=== PATIENT | female | born 1995 | race Caucasian/White ===

== ENCOUNTER 2023-10-08 05:59 | Emergency (ER) | payer OTHER, SELFPAY ==
[2023-10-08 06:00] VITALS: BP 140/92; PULSE 100; RESP 20; TEMP 36.3; O2SAT 100
--- NOTE | 2023-10-08 06:10 | ED.GENADULT ---
HPI - General Adult General Chief complaint: Dental/Oral Stated complaint: Tooth Pain(back molar) Time Seen by Provider: 10/08/23 06:05 History of Present Illness HPI narrative: Erin is a 28F with a PMH of poor dentition that presented to the ED with dental pain. She has had pain in her right lower molar for some time but it started to get much worse last night and into this morning. She has a dental appointment coming up but does not think she can make it. There are no fevers, chills, N/V, dyspnea or dysphagia. Related Data Allergies Allergy/AdvReac Type Severity Reaction Status Date / Time No Known Allergies Allergy Verified 10/08/23 06:04 Review of Systems Review of Systems: All systems reviewed & are unremarkable except as noted in HPI and below Exam Const: General: cooperative, healthy appearing, comfortable, no acute distress, well developed, alert, awake and Physically active Orientation/consciousness: oriented to person, oriented to place and oriented to time HENMT: Head: normal to inspection, normocephalic and atraumatic Ears: hearing grossly normal bilaterally and external ears normal Face/Nose/Sinus: Normal external nose present Other: Right lower molar was cracked with an erythematous base and TTP Eyes: General: appearance normal, both eyes and all related structures Periorbital: periorbital findings normal Sclera: sclerae normal Pupils: Equal, round and reactive pupils present Neck: Neck: normal visual inspection Chest: Chest palpation & inspection: normal inspection of the chest Resp: Effort & Inspection: normal respiratory effort, able to speak in complete sentences and no respiratory distress Cardio: Jugular venous distension: no JVD Skin: General skin exam: normal color and no rashes or lesions noted Neuro: General: oriented to person, oriented to place and oriented to time Cranial nerves: Yes Equal, round and reactive pupils present Extrem: General: normal to inspection Course Course Emergency Course: Ordered Toradol and Augmentin Discharge Plan Discharge Clinical Impression: Dental infection Patient Disposition: Home, Self-Care Condition: Stable Instructions: Dental Abscess (ED) Prescriptions: New amoxicillin-pot clavulanate 875-125 mg tablet 1 tablet PO Q12H Qty: 10 0RF hydrocodone-acetaminophen 5-325 mg tablet 1 tablet PO Q8H PRN (Reason: pain) Qty: 10 0RF Follow-up/Referrals: Wujek,Alex A., M.D. [Primary Care Provider] - Stand Alone Forms: Work/School Release IP
[2023-10-08] MEDS: KETOROLAC 30 MG/ML VIAL (*BKC) IM (06:15)
[2023-10-08] MEDS: AMOXICILLIN/CLAVULANATE K 875-125 MG TAB 1 TABLET PO (06:15)
[2023-10-08 06:33] VITALS: BP 138/75; PULSE 89; RESP 20; O2SAT 98
== END 2023-10-08 06:37 | disposition home or self-care (01) ==
LOC: CHSED 06:27
PROVIDERS: Emergency Provider Family Medicine; PCP Family Medicine
DX: K04.7 Periapical abscess without sinus (principal)
CPT/HCPCS: 96372; 99283; A9270; J1885

== ENCOUNTER 2023-12-28 08:13 | Emergency (ER) | payer OTHER, SELFPAY ==
[2023-12-28 08:13] VITALS: BP 127/83; PULSE 97; RESP 16; TEMP 36.9; O2SAT 100
--- NOTE | 2023-12-28 08:18 | ED.DENTAL ---
HPI - Dental/Oral General Chief complaint: Dental/Oral Stated complaint: dental pain Time Seen by Provider: 12/28/23 08:18 History of Present Illness HPI Narrative: Patient is a 28 year old female here with dental pain. She notes that over the weekend she began having left lower dental pain which worsened over night last night. She was taking tylenol which initially helped but has stopped working. She notes that she broke this tooth quite a while ago but it is worried that it may now be infected. This feels similar to her prior dental infections in the past. She notes that she is able to swallow but it is painful to move her jaw so she has been limiting how much she swallows. Last tylenol dose was around 4:30 AM today. She has a routine dental appointment next month. No fevers or chills. Related Data Allergies Allergy/AdvReac Type Severity Reaction Status Date / Time No Known Allergies Allergy Verified 12/28/23 08:21 Review of Systems Review of Systems: All systems reviewed & are unremarkable except as noted in HPI and below Exam Narrative: GENERAL: Well-appearing, well-nourished, and in no acute distress. HEAD: Normocephalic, atraumatic. EYES: PERRLA and EOMI. ENT: Nares clear. Mucous membranes moist. Poor dentition with multiple cracked teeth and dental carries throughout the mouth. Tenderness over tooth #18, no obvious drainable abscess. No drainage. Mild swelling over the mandible on the left. No fullness beneath tongue, no posterior pharyngeal swelling. NECK: Supple. CHEST: Clear to auscultation. No respiratory distress. HEART: Regular rate and rhythm. Normal peripheral pulses. ABDOMEN: Soft, nontender, nondistended. EXTREMITIES: Normal range of motion. No edema. SKIN: Warm, dry, no rash. NEURO: No focal deficits. Alert and oriented x3. PSYCH: Normal mood and affect. Course Course Emergency Course: Chart review performed. Patient here for dental pain. She had an ED visit in September 2023 for dental pain. She was started on [place] and Augmentin and advised follow up with PCP and dentist. Triage vitals normal. Patient seen and evaluated, appreciated poor dentition with suspicion for infected dental carries on the left. Patient just finished her last menstrual cycle, denies possibility of being . Will give dose of toradol and augmentin and reevaluate. Patient tolerating PO. Swallowing without difficulty. The results of pertinent diagnostic studies and exam findings were discussed. The patient?s provisional diagnosis and plan of care were discussed with the patient and present family. The patient and/or present family expressed understanding of the diagnosis and plan. The nurse was instructed to provide written instructions and appropriate follow-up information. The patient understands their need and responsibility to obtain additional follow-up as instructed. The risks of medications administered and prescribed were discussed with the patient and family present. Vital Signs Vital signs: Vital Signs Temperature 98.5 F 12/28/23 08:13 Pulse Rate 97 12/28/23 08:13 Respiratory Rate 16 12/28/23 08:13 Blood Pressure 127/83 12/28/23 08:13 Pulse Oximetry 100 12/28/23 08:13 Oxygen Delivery Room Air 12/28/23 08:13 Temperature 98.5 F 12/28/23 08:13 Pulse Rate 97 12/28/23 08:13 Respiratory Rate 16 12/28/23 08:13 Blood Pressure 127/83 12/28/23 08:13 Pulse Oximetry 100 12/28/23 08:13 Oxygen Delivery Room Air 12/28/23 08:13 Discharge Plan Discharge Clinical Impression: Dental caries, Dental abscess Patient Disposition: Home, Self-Care Condition: Stable Instructions: Antibiotic Form, Dental Abscess (ED) Additional Instructions: Take antibiotics as prescribed. Rotate tylenol and ibuprofen for your pain (alternating them every 3 hours). Take oxycodone for breakthrough pain. Call your dentist today to coordinate earlier follow up appointment. Call your primary doct
[2023-12-28] MEDS: AMOXICILLIN/CLAVULANATE K 875-125 MG TAB 1 TABLET PO (08:33)
[2023-12-28] MEDS: KETOROLAC 30 MG/ML VIAL (*BKC) 15 MG IM (08:33)
[2023-12-28 09:15] VITALS: BP 127/83; PULSE 97; RESP 16; TEMP 36.9; O2SAT 100
== END 2023-12-28 09:15 | disposition home or self-care (01) ==
LOC: CHSED 08:50
PROVIDERS: Emergency Provider Student in an Organized Health Care Education/Training Program; PCP Family Medicine
DX: K02.9 Dental caries, unspecified (principal); K04.7 Periapical abscess without sinus
CPT/HCPCS: 96372; 99283; A9270; J1885

== ENCOUNTER 2024-11-21 05:29 | Emergency (ER) | payer OTHER, SELFPAY ==
[2024-11-21 05:34] VITALS: BP 118/78; PULSE 100; RESP 20; TEMP 36.6; O2SAT 98
--- NOTE | 2024-11-21 05:42 | ED.DENTAL ---
HPI - Dental/Oral General Chief complaint: Dental/Oral Stated complaint: dental pain Time Seen by Provider: 11/21/24 05:40 Source: patient Mode of arrival: ambulatory Limitations: no limitations History of Present Illness HPI Narrative: right lower dental pain 2 days ago, no fever or chills, no trouble swallowing or breathing, no headache. Pain is 10/10 could not sleep MD Complaint: tooth pain Teeth map:  1. broken tooth with decay no abscess formation Related Data Allergies Allergy/AdvReac Type Severity Reaction Status Date / Time No Known Allergies Allergy Verified 12/28/23 08:21 Exam Narrative: General appearance: Well-developed, well-nourished Skin: Normal color Head: Normocephalic, nontraumatic Eyes: Clear conjunctiva ENT: Oropharynx normal, ears normal, nose normal Neck: Supple, nontender Neurologic: Alert and oriented ?3, Course Vital Signs Vital signs: Vital Signs Temperature 36.6 C 11/21/24 05:34 Pulse Rate 100 11/21/24 05:34 Respiratory Rate 20 11/21/24 05:34 Blood Pressure 118/78 11/21/24 05:34 Pulse Oximetry 98 11/21/24 05:34 Oxygen Delivery Room Air 11/21/24 05:34 Temperature 36.6 C 11/21/24 05:34 Pulse Rate 100 11/21/24 05:34 Respiratory Rate 20 11/21/24 05:34 Blood Pressure 118/78 11/21/24 05:34 Pulse Oximetry 98 11/21/24 05:34 Oxygen Delivery Room Air 11/21/24 05:34 Critical Care Time Critical Care Time Critical Care Time: No Discharge Plan Discharge Clinical Impression: Toothache, Dental caries Patient Disposition: Home, Self-Care Condition: Stable Instructions: Antibiotic Form, Toothache (ED) Additional Instructions: Return if symptoms are worsening , call your dentist as soon as possible for appointment, take Tylenol as as needed for aches and pain, continue home medications. Patient Language: Stateless Prescriptions: New clindamycin HCl [Cleocin HCl] 150 mg capsule 450 mg PO Q8H Qty: 90 0RF ibuprofen [IBU] 800 mg tablet 800 mg PO TID Qty: 20 0RF Follow-up/Referrals: Alex Greenwood M.D. [Primary Care Provider] - Stand Alone Forms: Work/School Release IP
[2024-11-21] MEDS: ONDANSETRON HCL ODT 4 MG TABLET PO (05:46)
[2024-11-21] MEDS: CLINDAMYCIN HCL 150 MG CAP 450 MG PO (05:48)
[2024-11-21] MEDS: HYDROmorphone HCL INJ (*CRX) 2 MG/ML VIAL 1 MG IM (05:48)
[2024-11-21] MEDS: IBUPROFEN 400 MG TABLET 800 MG PO (05:49)
[2024-11-21 06:07] VITALS: BP 120/73; PULSE 76; RESP 18; O2SAT 99
== END 2024-11-21 06:07 | disposition home or self-care (01) ==
PROVIDERS: Emergency Provider Emergency Medicine; PCP Family Medicine
DX: K02.9 Dental caries, unspecified (principal); K08.89 Other specified disorders of teeth and supporting structures
CPT/HCPCS: 96372; 99283; A9270; J1171

== ENCOUNTER 2024-11-26 10:02 | Emergency (ER) | payer OTHER, SELFPAY ==
--- NOTE | ~2024-11-26 | CT_ITS ---
EXAMINATION: CT soft tissue neck chest w DATE: 11/26/2024 13:15 INDICATION: Toothache. Right neck swelling for 5 days. TECHNIQUE: Computed tomography (CT) of the neck was performed with 75 mL Omnipaque-350 intravenous co ntrast. Automated exposure control and iterative reconstruction technique were employed. Exam dose: 1026.48 mGy-cm total exam DLP. COMPARISON: None FINDINGS: There is prominent cavity mild periapical abscess at the posterior most lower right molar t ooth, some erosion along the inner cortex of the medial aspect of the mandible this area. There are enlarged right submandibular lymph nodes, measuring up to 8 x 12 mm, 9.6 x 13.7 mm and 9.8 x 22.5 mm. No cervical mass lesion or lymphadenopathy is noted otherwise. The parotid and submandibular glands appear unremarkable. Normal size and homogeneous density of the thyroid gland. No superior mediastinal mass lesion or lymphadenopathy. There is moderate mucosal thickening along the lower lateral wall of the right maxillary sinus. The i ncluded paranasal sinuses and mastoid air cells are otherwise unremarkable. There is focal groundglass infiltrate in the anteromedial aspect of the right upper lobe. Cervical spine appears unremarkable. IMPRESSION: The posterior most lower right molar has a large cavity, with periapical abscess, with s ome subjacent erosion of the inner table of the right mandible Enlarged right submandibular lymph nodes, likely reactive Focal groundglass infiltrate in the anteromedial aspect of the right upper lobe Reviewed, dictated and finalized at [facility] Reviewed, dictated and finalized at [facility] IMPRESSION: The posterior most lower right molar has a large cavity, with rose apical abscess, with some subjacent erosion of the inner table of the right man dible Enlarged right submandibular lymph nodes, likely reactive Focal groundglass infiltrate in the anteromedial aspect of the right upper lobe
[2024-11-26 10:10] VITALS: BP 131/85; PULSE 98; RESP 16; TEMP 36.3; O2SAT 98
[2024-11-26 11:30] VITALS: BP 125/84; PULSE 89; RESP 20; TEMP 36.4; O2SAT 98
--- NOTE | 2024-11-26 11:30 | ED.GENADULT ---
HPI - General Adult General Chief complaint: Dental/Oral Stated complaint: DENTAL PAIN, FACIAL SWELLING Source: patient Mode of arrival: ambulatory Limitations: no limitations History of Present Illness HPI narrative: 21-year-old white female complained of a toothache a week ago was started on clindamycin here and then saw the dentist 2 days ago stool to continue her medicine she has swelling in the right side of her neck now that really has not changed in a few days. Otherwise she is eating drinking voiding and stooling fine no fever cough runny nose sore throat any other lumps or bumps or any other complaints. Related Data Allergies Allergy/AdvReac Type Severity Reaction Status Date / Time No Known Allergies Allergy Verified 12/28/23 08:21 Review of Systems Review of Systems: All systems reviewed & are unremarkable except as noted in HPI and below Exam Narrative: White female patient with no apparent distress.? Head normocephalic, atraumatic.? Eyes conjunctiva pink sclera nonicteric.? Extraocular movements are intact.? Ears externally normal.? TMs are normal. ?Oropharynx is clear with moist mucous membranes without exudates.? Multiple decayed teeth rotten specially to right lower posterior molar. Swollen right side of neck with lymphadenopathy. Neck is supple .? Back is nontender.? Lungs are clear.? Heart is regular rate and rhythm without murmurs gallops or rubs.? Chest wall nontender. ? Extremities no cyanosis clubbing or edema.? Skin is warm and dry without rashes or lesions.? Neurological patient is alert and oriented x4.? Motor and sensory grossly intact.? Gait is normal. Course Vital Signs Vital signs: Vital Signs Temperature 36.3 C L 11/26/24 10:10 Pulse Rate 98 11/26/24 10:10 Respiratory Rate 16 11/26/24 10:10 Blood Pressure 131/85 11/26/24 10:10 Pulse Oximetry 98 11/26/24 10:10 Oxygen Delivery Room Air 11/26/24 10:10 Temperature 36.6 C 11/26/24 13:47 Pulse Rate 91 11/26/24 13:47 Respiratory Rate 20 11/26/24 13:47 Blood Pressure 123/80 11/26/24 13:47 Pulse Oximetry 99 11/26/24 13:47 Oxygen Delivery Room Air 11/26/24 13:47 Medical Decision Making [facility] Narrative Medical decision making narrative: ?Patient placed in room: 5 with her ? History and physical was performed. CT soft tissue neck with IV contrast: The posterior most lower right molar has a large cavity, with periapical abscess, with some subjacent erosion of the inner table of the right mandible Enlarged right submandibular lymph nodes, likely reactive Focal groundglass infiltrate in the anteromedial aspect of the right upper lobe Independent Historian: External Source Review: Differential Dx includes but not limited to: Medications were Reviewed: home meds reviewed patient has clindamycin take for total of 30 days 3 times a day Medications given: Rocephin 1 g IM with lidocaine Independently Interpreted by me: Shared decision Making: evaluation was discussed with her and her significant other she should call the dentist tomorrow to see if she should take the clindamycin for a total of 30 days she has a follow-up appointment on the . Social Situation Impacting Patients Care: Discussed with Dr. SMITH DIAGNOSIS: Dental abscess DISPOSITION : discharge home CONDITION AT DISCHARGE: stable Vital Signs Vital Signs: Vital Signs Temperature 36.3 C L 11/26/24 10:10 Pulse Rate 98 11/26/24 10:10 Respiratory Rate 16 11/26/24 10:10 Blood Pressure 131/85 11/26/24 10:10 Pulse Oximetry 98 11/26/24 10:10 Oxygen Delivery Room Air 11/26/24 10:10 Temperature 36.6 C 11/26/24 13:47 Pulse Rate 91 11/26/24 13:47 Respiratory Rate 20 11/26/24 13:47 Blood Pressure 123/80 11/26/24 13:47 Pulse Oximetry 99 11/26/24 13:47 Oxygen Delivery Room Air 11/26/24 13:47 Lab Data 11/26/24 12:32 11/26/24 12:32 Labs: Lab Results 11/26/24 Range/Units 12:32 WBC 10.1 (4.8-10.8) K/mm3 RBC 3.83 L (4.20-5.40) M/mm3 Hgb 12.3 (12.0-15.0) g/dL Hct 36.8 (35.0-49.0) % MCV 96.1 (78.0-102.0) fL MCH 32.1 H (27.0-31.0) pg MCHC 33.4 (32-36) g/dL RDW 12.1 (11.6-14.4) % Plt Count 267 (150-420) K/mm3 MPV 9.7 (9.2-11.8) fl Sodium 139 (136-145) mmol/L Potassium 4.0 (3.5-5.1) mmol/L Chloride 102 (98-108) mmol/L Carbon Dioxide 27 (21-32) mmol/L Anion Gap 10 (4-12) mmol/L BUN 9 (7-18) mg/dL Creatinine 0.55 (0.55-1.02) mg/dL Estim Creat Clear Calc 162 ml/min Estimated GFR > 60 (59 - ) Glucose 86 (70-99) mg/dL Calculated Osmolality 285 (285-295) mOsm/kg Calcium 8.6 (8.5-10.1) mg/dL Total Bilirubin 0.4 (0.00-1.00) mg/dL AST 14 L (15-37) U/L ALT 24 (14-59) U/L Alkaline Phosphatase 69 (46-116) U/L Total Protein 7.6 (6.4-8.2) g/dL Albumin 3.7 (3.4-5.0) g/dL Discharge Plan Discharge Clinical Impression: Dental abscess Patient Disposition: Home, Self-Care Condition: Stable Instructions: Antibiotic Form, Dental Abscess (ED) Additional Instructions: continue taking clindamycin 3 times a day. But call your dentist tomorrow to see if she take it for a full 30 days. Tell the dentist you had a Rocephin shot 1 g IM. Return if you get worse or develops any new symptoms. Take Tylenol and/or ibuprofen as needed for pain. Patient Language: Danish Prescriptions: No Action clindamycin HCl [Cleocin HCl] 150 mg capsule 450 mg PO Q8H Qty: 90 0RF ibuprofen [IBU] 800 mg tablet 800 mg PO TID Qty: 20 0RF Follow-up/Referrals: Alex Greenwood M.D. [Primary Care Provider] - Stand Alone Forms: Work/School Release IP Time of Disposition: 14:13
[2024-11-26] MEDS: KETOROLAC 30 MG/ML VIAL (*BKC) IM (12:00)
[2024-11-26] MEDS: cefTRIAXone 1 GM, LIDOCAINE 1% LOCAL INJ 2.1 ML IM (12:01)
[2024-11-26 12:38] LABS: Hematocrit 36.8 % (35.0-49.0); Hemoglobin 12.3 g/dL (12.0-15.0); Mean Corpuscular HGB Conc 33.4 g/dL (32-36); Mean Corpuscular Hemoglobin 32.1 pg (27.0-31.0); Mean Corpuscular Volume 96.1 fL (78.0-102.0); Mean Platelet Volume 9.7 fl (9.2-11.8); Platelet Count Result 267 K/mm3 (150-420); Red Blood Count 3.83 M/mm3 (4.20-5.40); Red Cell Distribution Width 12.1 % (11.6-14.4); White Blood Count 10.1 K/mm3 (4.8-10.8)
[2024-11-26 12:52] LABS: Alanine Aminotransferase 24 U/L (14-59); Albumin Level 3.7 g/dL (3.4-5.0); Alkaline Phosphatase 69 U/L (46-116); Anion Gap 10 mmol/L (4-12); Aspartate Amino Transferase 14 U/L (15-37); Bilirubin,Total 0.4 mg/dL (0.00-1.00); Blood Urea Nitrogen 9 mg/dL (7-18); Calcium 8.6 mg/dL (8.5-10.1); Carbon Dioxide 27 mmol/L (21-32); Chloride 102 mmol/L (98-108); Estimated CRCL calculation 162 ml/min; Estimated Glomerular Filt Rate > 60; Glucose 86 mg/dL (70-99); Osmolality Calculated 285 mOsm/kg (285-295); Sodium 139 mmol/L (136-145); Total Protein 7.6 g/dL (6.4-8.2)
[2024-11-26 13:47] VITALS: BP 123/80; PULSE 91; RESP 20; TEMP 36.6; O2SAT 99
== END 2024-11-26 14:15 | disposition home or self-care (01) ==
PROVIDERS: Emergency Provider Emergency Medicine; PCP Family Medicine
DX: K04.7 Periapical abscess without sinus (principal)
CPT/HCPCS: 36415; 70491; 71260; 80053; 85027; 96372; 99284; J0696; J1885; J2003; Q9967

== ENCOUNTER 2025-07-07 11:40 | Emergency (ER) | payer MEDICAID, SELFPAY ==
[2025-07-07 11:40] VITALS: BP 101/64; PULSE 108; RESP 16; TEMP 36.4; O2SAT 98
[2025-07-07 12:18] LABS: Strep Group A RT-PCR DETECTED (Negative)
--- NOTE | 2025-07-07 12:24 | ED.URI ---
HPI - URI/Sore Throat General Chief Complaint: Upper Respiratory Infection Stated Complaint: sore throat Time Seen by Provider: 07/07/25 11:57 Source: patient and family Mode of arrival: ambulatory Limitations: no limitations History of Present Illness HPI Narrative: this is a 29-year-old female who presents with a 4 day history of sore throat with congestion chills with no fevers no shortness of breath no audible wheezing no nausea vomiting or abdominal pain. MD elicited complaint: sore throat Onset (ago): day(s) Severity: mild Description of mucous: clear Exacerbating factors: nothing Relieving factors: nothing Related Data Allergies Allergy/AdvReac Type Severity Reaction Status Date / Time No Known Allergies Allergy Verified 07/07/25 12:25 Review of Systems Review of Systems: All systems reviewed & are unremarkable except as noted in HPI and below Exam Const: General: healthy appearing and no acute distress Nutritional Appearance: well nourished Orientation/consciousness: patient oriented x3 Limitations: no limitations HENMT: Head: normal to inspection Other: Bilateral tonsillar enlargement and erythema with bilateral tender submandibular glands with palpation Neck: Neck: lymphadenopathy Chest: Chest palpation & inspection: normal inspection of the chest Resp: Effort & Inspection: normal respiratory effort Auscultation: clear to auscultation bilaterally Cardio: Rate: regular rate Rhythm: regular rhythm GI: GI Palp: Yes Soft to palpation Skin: General skin exam: normal color Rashes: no rashes Course Course Emergency Course: patient with positive strep test and will be sending antibiotics the patient's local pharmacy. Vital Signs Vital signs: Vital Signs Temperature 36.4 C 07/07/25 11:40 Pulse Rate 108 H 07/07/25 11:40 Respiratory Rate 16 07/07/25 11:40 Blood Pressure 101/64 07/07/25 11:40 Pulse Oximetry 98 07/07/25 11:40 Oxygen Delivery Room Air 07/07/25 11:40 Temperature 36.4 C 07/07/25 11:40 Pulse Rate 108 H 07/07/25 11:40 Respiratory Rate 16 07/07/25 11:40 Blood Pressure 101/64 07/07/25 11:40 Pulse Oximetry 98 07/07/25 11:40 Oxygen Delivery Room Air 07/07/25 11:40 MDM - URI/Sore Throat Lab Data Labs: Lab Results 08/23/25 Range/Units 11:48 Influenza A (RT-PCR) Pending Influenza B (RT-PCR) Pending RSV (RT-PCR) Pending SARS-CoV-2 RNA (RT-PCR) Pending Group A Strep (PCR) Detected A (Negative) Critical Care Time Critical Care Time Critical Care Time: No Discharge Plan Discharge Clinical Impression: Strep throat Patient Disposition: Home Condition: Stable Instructions: Antibiotic Form, Strep Throat (ED) Additional Instructions: advised patient to take medication as prescribed and follow-up with primary care physician if symptoms persist or worsen. Patient Language: Icelandic Prescriptions: New amoxicillin-pot clavulanate [Augmentin] 500-125 mg tablet 1 tablet PO TID Qty: 30 0RF Follow-up/Referrals: Alex Greenwood M.D. [Primary Care Provider, [facility]]
[2025-07-07 12:31] LABS: Influenza A QL RT-PCR Negative (Negative); Influenza B QL RT-PCR Negative (Negative); RSV RNA, RT-PCR Negative (Negative); SARS-CoV-2 RNA PCR Negative (Negative)
== END 2025-07-07 12:34 | disposition home or self-care (01) ==
LOC: CHSED 12:35
PROVIDERS: Emergency Provider Emergency Medicine; PCP Family Medicine
DX: J02.0 Streptococcal pharyngitis (principal); Z20.822 Contact with and (suspected) exposure to COVID-19
CPT/HCPCS: 87637; 87651; 99283

== ENCOUNTER 2025-10-03 16:47 | Emergency (ER) | payer OTHER, SELFPAY ==
[2025-10-03 16:49] VITALS: BP 123/81; PULSE 88; RESP 16; TEMP 36.9; O2SAT 98
--- NOTE | 2025-10-03 17:10 | ED.DENTAL ---
HPI - Dental/Oral General Chief complaint: Dental/Oral Stated complaint: left upper side tooth pain Time Seen by Provider: 10/03/25 17:10 Source: patient and family Mode of arrival: ambulatory Limitations: no limitations History of Present Illness HPI Narrative: Patient is a 30-year-old female with left upper jaw pain at her dental cavity with pain over the past few days. Patient has a plan to see her dentist as soon as possible. MD Complaint: tooth pain Location: Tooth # (14) Onset (ago): day(s) (Three) Duration: constant Severity: moderate Severity scale (1-10): 4 Relieving factors: nothing Exacerbating factors: chewing, cold, heat and drinking fluids Context: history of dental caries and poor dental care Associated symptoms: other (None) Treatment prior to arrival: oral analgesic Related Data Allergies Allergy/AdvReac Type Severity Reaction Status Date / Time No Known Allergies Allergy Verified 10/03/25 16:51 Review of Systems Review of Systems: All systems reviewed & are unremarkable except as noted in HPI and below Constitutional: Constitutional: Reports no additional constitutional complaints Eyes: Eyes: Reports no additional eye complaints ENT: Reports system reviewed and no additional complaints, except as documented Cardiovascular: Cardiovascular: Reports no additional cardiovascular complaints Respiratory: Respiratory: Reports no additional respiratory complaints Gastrointestinal: Gastrointestinal: Reports no additional gastrointestinal complaints Genitourinary: Genitourinary: Reports no additional female genitourinary complaints Musculoskeletal: Musculoskeletal: Reports no additional musculoskeletal complaints Integumentary/Breasts: Skin/Breast: Reports system reviewed and no additional complaints, except as docu Neurologic: Reports system reviewed and no additional complaints, except as documented Psychiatric: Psychiatric: Reports no additional psychiatric complaints Endocrine: Endocrine: Reports no additional endocrine complaints Hematologic/Lymphatic: Hematologic/Lymphatic: Reports no additional hematologic/lymphatic complaints Allergic/Immunologic: Allergic/Immunologic: Reports no additional allergic/immunologic complaints Exam Const: General: healthy appearing Nutritional Appearance: well nourished Orientation/consciousness: patient oriented x3 HENMT: Head: normal to inspection Ears: external ears normal Face/Nose/Sinus: Normal external nose present Other: General poor dentition and no abscess is seen; tooth 14 has severe decay and localized fractures of teeth Eyes: Conjunctivae: conjunctivae normal Pupils: Equal, round and reactive pupils present EOM: EOMs intact bilaterally Neck: Neck: normal visual inspection Chest: Chest palpation & inspection: normal inspection of the chest Resp: Effort & Inspection: normal respiratory effort and not labored Auscultation: clear to auscultation bilaterally and no crackles Cardio: Rate: regular rate Rhythm: regular rhythm Heart sounds: no murmurs GI: Inspection: non-distended Auscultation: normal bowel sounds : General: Yes bladder normal to palpation Back/Spine/Pelvis: Back: no CVA tenderness Skin: General skin exam: normal color Rashes: no rashes Wounds: no wounds Neuro: General: patient oriented x3, moves all extremities and no meningeal signs Extrem: General: normal to inspection, no clubbing, cyanosis or edema and no pedal edema Psych: Mental Status: mental status grossly normal Affect: normal affect Attitude: cooperative Course Vital Signs Vital signs: Vital Signs Temperature 36.9 C 10/03/25 16:49 Pulse Rate 88 10/03/25 16:49 Respiratory Rate 16 10/03/25 16:49 Blood Pressure 123/81 10/03/25 16:49 Pulse Oximetry 98 10/03/25 16:49 Oxygen Delivery Room Air 10/03/25 16:49 Temperature 36.6 C 10/03/25 17:41 Pulse Rate 82 10/03/25 17:41 Respiratory Rate 18 10/03/25 17:41 Blood Pressure 114/68 10/03/25 17:41 Pulse Oximetry 97 10/03/25 17:41 Oxygen Delivery Room Air 10/03/25 17:41 MDM - Dental/Oral MDM Narrative Medical decision making narrative: Patient is a 30-year-old female with left upper jaw pain at tooth over the past few days. Augmentin. Ultram. Patient declined Toradol. Dentist as soon as possible. Discharge Plan Discharge Clinical Impression: Maxilla pain Patient Disposition: Home Condition: Stable Instructions: Antibiotic Form, Toothache (ED) Patient Language: Algerian Prescriptions: New amoxicillin-pot clavulanate 875-125 mg tablet 1 tablet PO BID 10 Days Qty: 20 0RF tramadol 50 mg tablet 50 mg PO Q8H PRN (Reason: pain) Qty: 20 0RF Rx Instructions: 1-2 tabs per dose No Action amoxicillin-pot clavulanate [Augmentin] 500-125 mg tablet 1 tablet PO TID Qty: 30 0RF Follow-up/Referrals: Alex Greenwood M.D. [Primary Care Provider, [facility]] Time of Disposition: 17:32
[2025-10-03 17:41] VITALS: BP 114/68; PULSE 82; RESP 18; TEMP 36.6; O2SAT 97
--- OUTSIDE RECORDS SUMMARY | 2025-10-04 00:31 | XMS_ITS | Clinical Summary ---
Author Organization [facility] Address [address] [place] [address] Care Team Providers Care Review Consultant Name Role Phone Alex Greenwood MD Primary Care Provider [phone] Allergies No known active allergies Medications No known medications Social History Tobacco Use Types Packs/Day Years Used Date Smoking Tobacco: Every Day Cigarettes Smokeless Tobacco: Never Tobacco Cessation:Ready to Q uit: Not Asked; Counseling Given: Not Answered Alcohol Use Standard Drinks/Week Comments Never 0 (1 standard drink = 0.6 oz pur e alcohol) Comments No Sex and Gender Information Value Date Recorded Sex Assigned at Female 11/30/2024 3:17 AM SOFTWARE DEVELOPER Legal Sex Female 9:30 PM SOFTWARE DEVELOPER Gender Identity Female 11/24/2021 9:43 AM SOFTWARE DEVELOPER Sexual Orientation Not on file Last Filed Vital Signs Vital Sign Reading Time Taken Comments Blood Pressure 163/86 11/30/2024 3:17 AM SOFTWARE DEVELOPER Pulse 113 11/30/2024 3:17 AM SOFTWARE DEVELOPER Temperature 35.8 C (96.5 F) 11/30/2024 3:17 AM SOFTWARE DEVELOPER Respiratory Rate 16 11/30/2024 3:17 AM SOFTWARE DEVELOPER Oxygen Saturation 100% 11/30/2024 3:17 AM SOFTWARE DEVELOPER Inhaled Oxygen Concentration - - Weight 115.2 kg (254 lb) 11/30/2024 3:17 AM SOFTWARE DEVELOPER Height 165.1 cm (5' 5) 11/30/2024 3:17 AM SOFTWARE DEVELOPER Body Mass Index 42.27 11/30/2024 3:17 AM SOFTWARE DEVELOPER Plan of Treatment Health Maintenance Due Date Last Done Comments Cervical Cancer Screening Pa p Smear (Age 21 to 29) Every 3 Years 1996 Cervical Cancer Screening 1996 Annual Physical 1999 Hepatitis C 2014 DTaP, Tdap and Td Vaccines ( 1 - Tdap) 2015 Hepatitis B Vaccines (1 of 3 - 19+ 3-dose series) 2015 Pneumococcal Vaccine: Pediat rics (0 to 5 Years) and At-Risk Patients (6 to 49 Years) (1 of 2 - PCV) 2015 HPV Vaccines (1 - 3-dose SCD M series) 2023 COVID-19 Vaccine (1 - 2024-2 6 season) 2025 Influenza Adult (#1) 2025 Hepatitis A Vaccines Aged Out No long er eligible based on patient's age to complete this topic Meningococcal B Vaccine Aged Out No l onger eligible based on patient's age to complete this topic Meningococcal Vaccine Aged Out No dennys gary eligible based on patient's age to complete this topic RSV Immunizations Under 20 Months Aged Out No longer eligible based on patient's age to complete this topic Insurance [facility] MED[facility] Care Teams Review Consultant Relationship Specialty Start Date End Date Alex Greenwood MD [address] [place] [address] PCP - General FAMILY PRACTICE 09/02/21
--- OUTSIDE RECORDS SUMMARY | 2025-10-04 00:31 | XMS_ITS | Encounter Summary ---
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
--- OUTSIDE RECORDS SUMMARY | 2025-10-04 00:52 | XMS_ITS | Encounter Summary ---
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
--- OUTSIDE RECORDS SUMMARY | 2025-10-04 00:52 | XMS_ITS | Clinical Summary ---
Author Organization [facility] Address [address] [place] [address] Care Team Providers Care Waiter/Waitress Formal Name Role Phone Alex Greenwood MD Primary Care Provider [phone] Allergies No known active allergies Medications No [...] Sex Assigned at Female 11/30/2024 3:17 AM DIAL BRUSHER Legal Sex Female 9:30 PM DIAL BRUSHER Gender Identity Female 11/24/2021 9:43 AM DIAL BRUSHER Sexual Orientation Not on file Last Filed Vital Signs Vital Sign Reading Time Taken Comments Blood Pressure 163/86 11/30/2024 3:17 AM DIAL BRUSHER Pulse 113 11/30/2024 3:17 AM DIAL BRUSHER Temperature 35.8 C (96.5 F) 11/30/2024 3:17 AM DIAL BRUSHER Respiratory Rate 16 11/30/2024 3:17 AM DIAL BRUSHER Oxygen Saturation 100% 11/30/2024 3:17 AM DIAL BRUSHER Inhaled Oxygen Concentration - - Weight 115.2 kg (254 lb) 11/30/2024 3:17 AM DIAL BRUSHER Height 165.1 cm (5' 5) 11/30/2024 3:17 AM DIAL BRUSHER Body Mass Index 42.27 11/30/2024 3:17 AM DIAL BRUSHER Plan of Treatment Health Maintenance Due Date [...] patient's age to complete this topic Insurance [facility] MEDICAID Care Teams Waiter/Waitress Formal Relationship Specialty Start Date End Date Alex Greenwood MD [address] [place] [address] PCP - General FAMILY PRACTICE 09/02/21
== END 2025-10-03 17:45 | disposition home or self-care (01) ==
PROVIDERS: Emergency Provider Emergency Medicine; PCP Family Medicine
DX: R68.84 Jaw pain (principal)
CPT/HCPCS: 99283; A9270